=== PATIENT | female | born 1970 | race Caucasian/White ===

== ENCOUNTER 2022-04-08 16:27 | Emergency (ER) | payer OTHER ==
--- OUTSIDE RECORDS SUMMARY | 2022-04-08 16:30 | XMS REPORT | Continuity of Care Document ---
:1970 Author Organization [facility] t Address [address] [place] [place] [address] Care Team Providers Name Role Phone Asked, No Pcp Primary Care Physician Unavailable RADIOLOGY Attending Clinician Unavailable Payers Payer Name Policy Type Policy Number Effective Date Expiration Date Bobby cotto [employer] O [id number] 2010 00:00:00 Problems Condition Condition Condition Status Onset Resolution Last Treating Co mments Source Name Details Category Date Date Treatment Clinician Date Lumbar Lumbar Disease Active Methodi stenosis stenosis 11-19 with with 00:00: Hospita neurogenic neurogenic 00 l claudicati claudicati on on Allergies, Adverse Reactions, Alerts Allergy Allergy Status Severity Reaction(s) Onset Inactive Treating Comm ents Source Name Type Date Date Clinician NO KNOWN Drug Active Univers ALLERGIE Class [facility]y of [facility] Social History Social Habit Start Date Stop Date Quantity Comments Source Alcohol intake 2017-11-22 2017-11-22 Current drinker [facility] 00:00:00 00:00:00 of alcohol Hospital (finding) Tobacco use and 2017-10-26 2017-10-26 Smokeless tobacco Me [facility] exposure 00:00:00 00:00:00 non-user Hospital Alcohol Comment 2017-10-26 2017-10-26 rarely Muslim 00:00:00 00:00:00 Hospital Sex Ass[birth year] At [birth year] Muslim 00:00:00 00:00:00 Hospital Smoking Status Start Date Stop Date Source Never smoked tobacco [facility] Medications Ordered Filled Start Stop Current Ordering Indication Dosage Frequency Signature Comments Components Source Medication Medication Date Date Medication? Clinician (SIG) Name Name methocarbam 2017-03 Yes 500mg Q.25D Take 500 Methodi ol 0-[address] (ROBAXIN) 10:05: mouth 4 Hospi ta 500 MG 17 (four) l tablet times a day. traMADol 2017-03 Yes 50mg Q6H Take 50 mg Met hodi (ULTRAM) 50 0-[address] mg tablet 10:05: every 6 Hospi ta 17 (six) l hours as needed for moderate pain. ibuprofen Yes 200mg Q6H Take 200 Met hodi (ADVIL,MOTR 9-[address] [place]) 200 MG 15:43: mouth Hospit a tablet 32 every 6 l (six) hours as needed for mild pain. pseudoepHED Yes 120mg Q12H Take 120 M ethodi rine 9-[address] (SUDAFED) 15:43: mouth Hospita 120 mg 12 32 every 12 l hr tablet (twelve) hours. Procedures This patient has no known procedures. Plan of Care Planned Activity Planned Date Details Comments Source Future Scheduled 2022-03-05 COVID-19 VACCINE (#1) [facility] Test 01:30:51 [code = COVID-19 VACCINE (#1)] Future Scheduled 2022-03-05 Screening for [facility] Test 01:30:51 malignant neoplasm of cervix (procedure) [code = [id number]] Future Scheduled 2022-03-05 BREAST CANCER [facility] Test 01:30:51 SCREENING [code = BREAST CANCER SCREENING] Future Scheduled 2022-03-05 COLONOSCOPY SCREENING [facility] Test 01:30:51 [code = COLONOSCOPY SCREENING] Future Scheduled 2022-03-05 INFLUENZA VACCINE [facility] Test 01:30:51 [code = INFLUENZA VACCINE] Future Scheduled 2022-03-05 SHINGLES VACCINES (1 Met [facility] Test 01:30:51 of 2) [code = SHINGLES VACCINES (1 of 2)] Encounters Start End Encounter Admission Attending Care Care Encounter Source Date/Time Date/Time Type Type Clinicians Facility Department ID 2019-12-15 2019-12-15 Outpatient R RADIOLOGY [facility] [id number] [facility] 11:30:00 11:30:00 [facility] 2019-12-12 2019-12-12 Outpatient R RADIOLOGY [facility] [id number] [facility] 00:00:00 00:00:00 [facility] Results This patient has no known results.
--- NOTE | 2022-04-08 18:27 | RAD REPORT ---
EXAM DESCRIPTION: RAD - Knee Right 3 View - 04/08/2022 6:00 pm CLINICAL HISTORY: PAIN COMPARISON: No comparisons FINDINGS: Medial compartment space arthritic changes are present. No fracture. Mild joint effusion.
--- NOTE | 2022-04-08 18:27 | RAD REPORT ---
EXAM DESCRIPTION: RAD - Hand Right 3 View - 04/08/2022 6:00 pm CLINICAL HISTORY: PAIN COMPARISON: No comparisons FINDINGS: No acute fracture or dislocation.
--- NOTE | 2022-04-08 18:28 | RAD REPORT ---
EXAM DESCRIPTION: RAD - Ankle Right 3 View - 04/08/2022 6:00 pm CLINICAL HISTORY: PAIN COMPARISON: No comparisons FINDINGS: Soft tissue swelling is seen affecting the ankle. Tiny ossified fragment lateral inferior ankle probably is related to prior injury. No fracture or dislocation.
--- NOTE | 2022-04-08 18:29 | RAD REPORT ---
EXAM DESCRIPTION: RAD - Sacrum And Coccyx - 04/08/2022 6:01 pm CLINICAL HISTORY: PAIN COMPARISON: Lumbar Spine 3 Views dated 04/08/2022 FINDINGS: No fracture or subluxation.
--- NOTE | 2022-04-08 18:29 | RAD REPORT ---
EXAM DESCRIPTION: RAD - Lumbar Spine 3 Views - 04/08/2022 6:01 pm CLINICAL HISTORY: PAIN Radiculopathy COMPARISON: No comparisons FINDINGS: Vertebral body heights appear maintained. No compression fracture noted. Mild lower lumbar spondylosis with small endplate osteophytes. No spondylolysis or spondylolisthesis. Cholecystectomy clips. IMPRESSION: Mild lower lumbar spondylosis.
--- NOTE | 2022-04-08 18:50 | EDPHYS ---
Physician Documentation [facility] Name: Jocelyn Wilburn Age: 51 yrs Sex: Female : 1970 Arrival Date: 04/08/2022 Time: 17:01 Bed 21 Private MD: Shamar Ritter ED Physician Markell Bailon HPI: 04/08 18:47 This 51 yrs old Female presents to ER via Wheelchair with complaints of Fall Injury. kb 18:47 Details of fall: The patient fell from an upright position, while walking. Onset: The kb symptoms/episode began/occurred just prior to arrival. Associated injuries: The patient sustained injury to the low back, pain, heel of right hand and right knee and right ankle, painful injury. Severity of symptoms: At their worst the symptoms were moderate, in the emergency department the symptoms are unchanged. The patient has not experienced similar symptoms in the past. The patient has not recently seen a physician. Pt was walking through some tall grass, slipped and fell. c/o pain to low back, right hand, right ankle and right knee. Historical: - Allergies: 17:11 No Known Allergies; iw - Home Meds: 17:11 None [Active]; iw - PMHx: 17:11 MTHFR; iw - PSHx: 17:11 back; iw ROS: 18:42 Constitutional: Negative for fever, chills, and weight loss. kb 18:42 Back: Positive for pain at rest, pain with movement. 18:42 MS/extremity: Positive for pain, of the heel of right hand and right knee and right ankle. 18:42 All other systems are negative. Exam: 18:42 Constitutional: This is a well developed, well nourished patient who is awake, alert, kb and in no acute distress. Head/Face: Normocephalic, atraumatic. ENT: Moist Mucous membranes Cardiovascular: Regular rate and rhythm with a normal S1 and S2. No gallops, murmurs, or rubs. No pulse deficits. Respiratory: Respirations even and unlabored. No increased work of breathing. Talking in full sentences Abdomen/GI: Soft, non-tender. No distention Skin: Warm, dry with normal turgor. Normal color. Neuro: Awake and alert, GCS 15, oriented to person, place, time, and situation. Moves all extremities. Normal gait. Psych: Awake, alert, with orientation to person, place and time. Behavior, mood, and affect are within normal limits. 18:42 Back: pain, that is moderate, of the heel of right hand and right knee and right ankle, ROM is normal, normal spinal alignment noted. 20:36 Musculoskeletal/extremity: Extremities: grossly normal except: noted in the heel of kb right hand: contusion, ecchymosis, pain, swelling, tenderness, noted in the right knee: ecchymosis, pain, swelling, noted in the right ankle: pain, ROM: intact in all extremities, Circulation is intact in all extremities. Sensation intact. Weight bearing: can bear weight with assistance only. Vital Signs: 17:14 BP 164 / 99; Pulse 99; Resp 16; Temp 98.1; Pulse Ox 99% ; iw MDM: 17:14 Patient medically screened. kb 18:42 Differential diagnosis: contusion, fracture, sprain, strain. Data reviewed: vital kb signs, nurses notes. Counseling: I had a detailed discussion with the patient and/or guardian regarding: the historical points, exam findings, and any diagnostic results supporting the discharge/admit diagnosis, radiology results, the need for outpatient follow up, a family practitioner, to return to the emergency department if symptoms worsen or persist or if there are any questions or concerns that arise at home. 20:15 ED course: pt upset that MRI cannot be done in the ER. Requests second opinion and asks kb for Hair [employer] Beauty Salon Manager to figure out how she is going to get a MRI done outpatient. Dr Pruitt at chairside to evaluate pt. . 20:37 ED course: Offered crutches, but pt reports she will not be able to use them with kb contusion to hand. 04/08 17:17 Order name: Knee Right 3 View XRAY; Complete Time: 18:33 kb 04/08 17:17 Order name: Ankle Right 3 View XRAY; Complete Time: 18:33 kb 04/08 17:17 Order name: Hand Right 3 View XRAY; Complete Time: 18:33 kb 04/08 17:17 Order name: Sacrum And Coccyx XRAY; Complete Time: 18:33 kb 04/08 17:17 Order name: Lumbar Spine (3 Views) XRAY; Complete Time: 18:33 kb 04/08 19:37 Order name: Misc. Order: crackers ; Complete Time: 20:28 kb 04/08 19:48 Order name: Ismael Wrap; Complete Time: 20:28 kb Administered Medications: 19:45 Drug: Ibuprofen 800 mg Route: PO; ha1 Disposition Summary: 04/08/22 18:49 Discharge Ordered Location: Home kb Condition: Stable kb Diagnosis - Fall on same level from slipping, tripping and stumbling without subsequent kb striking against object - Pain in right knee kb - Pain in right ankle and joints of right foot kb - Pain in right hand kb Followup: kb - With: Emergency Department - When: As needed - Reason: Worsening of condition Followup: kb - With: Private Physician - When: 2 - 3 days - Reason: Recheck today's complaints, Continuance of care, Re-evaluation by your physician Discharge Instructions: - Discharge Summary Sheet kb - Musculoskeletal Pain kb Forms: - Medication Reconciliation Form kb - Thank You Letter kb - Antibiotic Education kb - Prescription Opioid Use kb Prescriptions: - Diclofenac Sodium 75 mg Oral tablet,delayed release (DR/EC) - take 1 tablet by ORAL route 2 times per day As needed; 30 tablet; Refills: 0, kb Product Selection Permitted - orphenadrine citrate 100 mg Oral Tablet Sustained Release - take 1 tablet by ORAL route 2 times per day As needed; 20 tablet; Refills: 0, kb Product Selection Permitted Signatures: Dispatcher [employer] EDMyrna Cardoza, MARCOS-C HOME VISITOR [employer] START-Shy Zuniga, ROSE MARIE TROTTER Peggy Jean RN RN 1 Corrections: (The following items were deleted from the chart) 18:46 18:42 MS/extremity: Positive for pain, of the right ankle and right knee, kb kb 20:37 18:42 Constitutional: This is a well developed, well nourished patient who is awake, kb alert, and in no acute distress. Head/Face: Normocephalic, atraumatic. ENT: Moist Mucous membranes Cardiovascular: Regular rate and rhythm with a normal S1 and S2. No gallops, murmurs, or rubs. No pulse deficits. Respiratory: Respirations even and unlabored. No increased work of breathing. Talking in full sentences Abdomen/GI: Soft, non-tender. No distention Skin: Warm, dry with normal turgor. Normal color. Neuro: Awake and alert, GCS 15, oriented to person, place, time, and situation. Moves all extremities. Normal gait. Psych: Awake, alert, with orientation to person, place and time. Behavior, mood, and affect are within normal limits. kb
--- NOTE | 2022-04-08 18:50 | ER ---
Nurse's Notes [facility] Name: Jocelyn Wilburn Age: 51 yrs Sex: Female : 1970 Arrival Date: 04/08/2022 Time: 17:01 Bed 21 Private MD: Shamar Ritter Diagnosis: Fall on same level from slipping, tripping and stumbling without subsequent striking against object;Pain in right knee;Pain in right ankle and joints of right foot;Pain in right hand Presentation: 04/08 17:10 Chief complaint: Patient states: was walking to her car through the grass and she iw slipped and hurt right knee and my right ankle , and i hurt my hand but i think it's ok. 17:10 Acuity: ROSY 4 iw 17:11 Coronavirus screen: At this time, the client does not indicate any symptoms associated iw with coronavirus-19. Ebola Screen: Patient negative for fever greater than or equal to 101.5 degrees Fahrenheit, and additional compatible Ebola Virus Disease symptoms Patient denies exposure to infectious person. Patient denies travel to an Ebola-affected area in the 21 days before illness onset. No symptoms or risks identified at this time. Initial Sepsis Screen: Does the patient meet any 2 criteria? No. Patient's initial sepsis screen is negative. Does the patient have a suspected source of infection? No. Patient's initial sepsis screen is negative. Risk Assessment: Do you want to hurt yourself or someone else? Patient reports no desire to harm self or others. Onset of symptoms was April 08, 2022. 17:11 Method Of Arrival: Wheelchair iw Historical: - Allergies: 17:11 No Known Allergies; iw - Home Meds: 17:11 None [Active]; iw - PMHx: 17:11 MTHFR; iw - PSHx: 17:11 back; iw Screenin:54 Abuse screen: Denies threats or abuse. Denies injuries from another. Nutritional ha1 screening: No deficits noted. Tuberculosis screening: No symptoms or risk factors identified. Assessment: 19:45 General: Appears uncomfortable, Behavior is cooperative. Pain: Complains of pain in ha1 right leg and right ankle. Pain: Pain does not radiate. Pain currently is 8 out of 10 on a pain scale. Neuro: Level of Consciousness is awake, alert, obeys commands, Oriented to person, place, time, situation. Cardiovascular: Patient's skin is warm and dry. Respiratory: Airway is patent Respiratory effort is even, unlabored, Respiratory pattern is regular, symmetrical. GI: No signs and/or symptoms were reported involving the gastrointestinal system. Abdomen is non-distended, obese. Musculoskeletal: Circulation, motion, and sensation intact. Reports pain in right leg and right knee and right ankle. 19:52 Reassessment: provided snacks ( apple juice and crackers). ha1 20:29 Reassessment: In attempt to DC patient; pt educates the commercial real estate underwriter that she is to have her jh5 knee wrapped prior to exiting and that she was told by Freeman Abarca to follow up with Administration tomorrow about this hospital covering all charges for pt ER visit due to pt slipping on grass in parking lot. Pt is wearing pants and the commercial real estate underwriter attempts to lift pants to wrap the knee, however is unable. Pt then gets upset with the commercial real estate underwriter and commercial real estate underwriter offers to wrap knee over the pant leg. 20:49 Reassessment: When attempting to get pt from ER wheelchair and into guest chair in her jh5 fathers room she states can not walk at all because she now has a ligament problem to the right knee after falling. Pt was offered crutches by the provider as well as the commercial real estate underwriter and refuses them. 20:51 Reassessment: Pt is discharged and remaining in ER room with her dad, whom is a patient jh5 in ER. Vital Signs: 17:14 BP 164 / 99; Pulse 99; Resp 16; Temp 98.1; Pulse Ox 99% ; iw ED Course: 17:01 Patient arrived in ED. mr 17:01 Shamar Ritter is Private Physician. mr 17:11 Triage completed. iw 17:11 Arm band placed on. iw 17:13 Myrna Uribe FNP-C is [facility]. kb 17:13 Markell Bailon MD is Attending Physician. kb 18:01 Knee Right 3 View XRAY In Process Unspecified. EDMS 18:01 Ankle Right 3 View XRAY In Process Unspecified. EDMS 18:01 Hand Right 3 View XRAY In Process Unspecified. EDMS 18:01 Sacrum And Coccyx XRAY In Process Unspecified. EDMS 18:01 Lumbar Spine (3 Views) XRAY In Process Unspecified. EDMS Administered Medications: 19:45 Drug: Ibuprofen 800 mg Route: PO; ha1 Outcome: 18:49 Discharge ordered by MD. melendez 20:52 Patient left the ED. 5 Signatures: Dispatcher [employer] EDMS Myrna Uribe, OLIVE BAILEYP-Haresh Norma Mitchell Shy Munoz, RN RN iw Antonietta Wiley RN RN [facility] Peggy Jean RN RN 1 Corrections: (The following items were deleted from the chart) 17:22 17:14 Pulse 99bpm; Resp 16bpm; Pulse Ox 99%; Temp 98.1F; iw iw
[2022-04-08] MEDS ORDERED: IBUPROFEN 400 MG TAB ONE (19:44)
[2022-04-08 22:30] VITALS: BP 164/99; TEMP 98.1; O2SAT 99
== END 2022-04-08 20:52 | disposition home or self-care (01) ==
LOC: ER 16:27
DX: M25.561 Pain in right knee (principal); M79.641 Pain in right hand; M25.571 Pain in right ankle and joints of right foot; M54.50 Low back pain, unspecified; W01.0XXA Fall on same level from slipping, tripping and stumbling without subsequent striking against object, initial encounter
CPT/HCPCS: 72100; 72220